=== PATIENT | male | born 1970 | race Caucasian/White ===

== ENCOUNTER 2016-12-05 23:41 | Observation (INO) | payer SELFPAY ==
--- NOTE | ~2016-12-05 | HP ---
History And Physical [place] [id number] [facility] [place]. [address] NAME: ELANA RAMOS : 68 STATUS : ADM Davina PAT#: [id number] AGE: 46 ADM/REG DATE : 12/05/16 MR#: [id number] REPORT SERV DATE: 12/06/16 DICTATED BY: STEFANIE PAGAN DATE: 12/06/16 REPORT STATUS : Draft TRANSCRIBED BY: MODL DATE: 12/06/16 DATE OF ADMISSION: 12/05/2016 CHIEF COMPLAINT: Chest pain. HISTORY OF PRESENT ILLNESS: This is a 46-year-old male who chews tobacco, but no other significant medical history, who states a couple-year history of chest pain. She states it is typically left-sided lasting for anywhere between seconds to minutes and there is no specific pattern to it. Yesterday morning, he was awakened with the pain and it was radiating to the left arm. He was concerned and came to our emergency department for further evaluation. He was given some nitroglycerin paste. This did not particularly help. It resolved sometime over night on its own. The patient's is at bedside. She states that he will often have chest pain during intercourse and this lasts for approximately 20 minutes. No other specific exertional pattern. The patient states the pain is not typically provoked with food, although sometimes associated with some nausea and belching. Yesterday, he also had some pain to the left leg, headache, and the chest pain will also leads in feeling very fatigued. The patient does not have a primary care physician and has had no recent illnesses or hospitalizations. He denies personal history for CO, DVT, CVA, PE, or CO. He denies any recent dyspnea, PND, orthopnea, or lower extremity edema. MEDICAL HISTORY: 1. Tobacco use. 2. History of renal calculi. 3. 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 4. Prior illicit drug use. SURGICAL HISTORY: None. HOME MEDICATIONS: None. ALLERGIES: NO KNOWN DRUG ALLERGIES. SOCIAL HISTORY: The patient is and works as a duarte. He chews tobacco, one can per day for many years, but on and off. Denies alcohol use. A former drug abuse, but none recently. FAMILY HISTORY: Negative for premature cardiovascular disease among his first-degree relatives. REVIEW OF SYSTEMS: Negative except as indicated above. PHYSICAL EXAMINATION: History And Physical [address] [address] NAME: ELANA RAMOS : 68 STATUS : ADM Davina PAT#: [id number] AGE: 46 ADM/REG DATE : 12/05/16 MR#: [id number] REPORT SERV DATE: 12/06/16 DICTATED BY: STEFANIE PAGAN DATE: 12/06/16 REPORT STATUS : Draft TRANSCRIBED BY: ERIC DATE: 12/06/16 VITAL SIGNS: Blood pressure 120-130/80, temperature 97.8, pulse oximetry 98% room air. Heart rate 60s and BMI 27.5. GENERAL: Well developed, well nourished, in no acute distress. HEENT: Anicteric. Normal EOM. Head normocephalic. PERRLA, no xanthelasma. NECK: Supple. No JVD. Carotids normal without bruits. LUNGS: Clear to auscultation bilaterally anterior and posterior. Respirations even and unlabored. CARDIAC: S1, S2 regular rate and rhythm. No murmurs, rubs, or gallops. No chest wall tenderness. ABDOMEN: Normal bowel sounds. Soft and nontender to palpation. No masses or organomegaly. EXTREMITIES: No peripheral edema. DP/PT and radial pulses palpable bilaterally. No clubbing or cyanosis. SKIN: Warm and dry. Normal turgor. No pallor or cyanosis. MUSCULOSKELETAL: Moving all extremities x4. Normal muscle strength. NEURO/PSYCH: Alert and oriented with appropriate affect. LABORATORY DATA: White blood count 8.4, hemoglobin 14.6, and hematocrit 42.1. Sodium 141, potassium 3.5, BUN 15, creatinine 0.8, magnesium 2.4, troponin less than 0.02 x2. Chest x-ray shows no acute cardiopulmonary processes. EKGs interpreted by myself indicate normal sinus rhythm on two separate EKGs. No indication of ischemia. ASSESSMENT AND PLAN: 1. Midsternal chest pain in this 46-year-old male with cardiovascular risk factor of tobacco abuse. He has been observed overnight in the Chest Pain observation Unit and is negative for acute coronary syndrome. There is an exertional component to the chest pain, although the chest pain also has some atypical qualities. Recommend proceeding with a stress echocardiogram today to differentiate any cardiac etiology to his chest pain. If any indication of ischemia on stress echocardiogram, we will plan to consult Cardiology for a possible cardiac catheterization. If no ischemia on stress testing, we will plan to discharge him home today and help him establish with a primary care physician in the [facility]. I have urged primary care physician followup for the patient's current concern, as well as health maintenance. 2. Tobacco abuse. The patient chews tobacco. I have counseled him regarding complete cessation. DBT/ERIC Stefanie Pagan NP / [phone] History And Physical [address] [address] NAME: ELANA RAMOS : 68 STATUS : ADM Davina PAT#: [id number] AGE: 46 ADM/REG DATE : 12/05/16 MR#: [id number] REPORT SERV DATE: 12/06/16 DICTATED BY: STEFANIE PAGAN DATE: 12/06/16 REPORT STATUS : Draft TRANSCRIBED BY: ERIC DATE: 12/06/16 CC: Shyanne Fuchs, MSN, [employer]
[2016-12-05 23:44] LABS: BASOPHILS 0.7 %; BASOPHILS ABSOLUTE 0.06 10/3/uL (0.0-0.16); EOSINOPHILS 4.7 %; ER CBC TAT 0 Hrs 08 Mins; HEMATOCRIT 42.1 % (40.0-51.0); HEMOGLOBIN 14.6 g/dL (13.6-17.8); IMMATURE GRANULOCYTES 0.2 %; IMMATURE GRANULOCYTES ABSOLUTE 0.02 10/3/uL (0.0-0.11); LYMPHOCYTES 26.9 %; LYMPHOCYTES ABSOLUTE 2.27 10/3/uL (0.67-4.30); MEAN CORPUS HGB CONC 34.7 g/dL (32.0-36.0); MEAN CORPUSCULAR HEMOGLOB 29.6 pg (26.0-34.0); MEAN CORPUSCULAR VOLUME 85.2 fL (80-100); MEAN PLATELET VOLUME 9.4 fL (9.2-13.0); MONOCYTES 5.9 %; NEUTROPHILS 61.6 %; NEUTROPHILS ABSOLUTE 5.18 10/3/uL (2.02-8.40); PLATELET COUNT 267 10/3/uL (150-400); RED CELL COUNT 4.94 10/6/uL (4.7-6.1); WHITE BLOOD CELLS 8.4 10/3/uL (4.5-10.5)
[2016-12-05 23:46] LABS: MANUAL DIFF NO %
[2016-12-05 23:48] LABS: INTERNATIONAL NORMAL RATI 1.1 UNITS (-); PARTIAL THROMBO TIME 27.3 SEC (22.5-37.2); PROTIME (NOT ORD) 14.1 SEC (12.0-14.5)
[2016-12-05 23:56] LABS: BUN (BLOOD UREA NITROGEN) 15 MG/DL (6-23); CALCIUM, SERUM 8.2 MG/DL (8.5-10.4); CHEST PAIN PROFILE TAT 0 Hrs 20 Mins; CHLORIDE, SERUM 105 MMOL/L (96-112); CO2 (CARBON DIOXIDE) 26 MMOL/L (24-34); CREATININE 0.89 MG/DL (0.70-1.30); GFR AFRICAN AMERICAN 118 ML/MIN (>=60); GFR NON AFRICAN AMERICAN 102 ML/MIN (>=60); GLUCOSE, SERUM 102 MG/DL (60-99); POTASSIUM, SERUM 3.5 MMOL/L (3.5-5.3); SODIUM, SERUM 141 MMOL/L (135-148); TROPONIN I <0.02 NG/ML (<0.05)
[2016-12-06] MEDS ORDERED: ASA5GR PO (01:33)
== END 2016-12-06 15:39 | disposition home or self-care (01) ==
LOC: ER 23:41 → CDU1 23:59
PROVIDERS: Hospitalist
DX: R07.9 Chest pain, unspecified (principal); F17.290 Nicotine dependence, other tobacco product, uncomplicated; Z87.442 Personal history of urinary calculi; Z86.73 Personal history of transient ischemic attack (TIA), and cerebral infarction without residual deficits
CPT/HCPCS: 71020; 80048; 83735; 84484; 85025; 85610; 85730; 93005; 93017; 99285; A9270-GY; C8928; G0378